=== PATIENT | male | born 1990 | race Caucasian/White ===

== ENCOUNTER 2023-07-04 13:46 | Emergency (ER) | payer SELFPAY ==
[2023-07-04 13:54] VITALS: BP 138/85; PULSE 82; RESP 20; TEMP 36.7; O2SAT 97; BMI 28.1
--- NOTE | 2023-07-04 13:58 | PC.NURSE ---
Pain to right upper back area, no redness, bruising or warmth at site
--- NOTE | 2023-07-04 14:02 | XR_ITS ---
The [address] [address] Patient Name: ANGÉLICA RIOS MRN: [id number] date: 1990 Sex: M Assigned Patient Location: ER Current Patient Location: ER Accession/Order Number: [id number] Exam Date: 07/04/2023 14:21 Report Date: 07/04/2023 14:44 At the request of: GARRET ALBA Procedure: XR chest 2V EXAM: XR chest 2V HISTORY: Thoracic back pain COMPARISON: None. TECHNIQUE: Upright PA and lateral chest x-ray FINDINGS: The heart is not enlarged and the vasculature is not distended. No acute infiltrate, effusion or pneumothorax is identified. The osseous structures are grossly intact. XR/XR chest 2V IMPRESSION: No acute infiltrate or evidence of cardiac decompensation. The osseous structures appear grossly intact. Electronically authenticated by: DONG ANDREWS Date: 07/04/2023 14:44
--- NOTE | 2023-07-04 14:03 | ED.BACK1 ---
HPI - Back Pain/Injury General Chief Complaint: Back Pain/Injury Stated Complaint: BACK PAIN/INJURY Time Seen by Provider: 07/04/23 13:50 Source: patient Mode of arrival: walk-in Limitations: no limitations History of Present Illness HPI Narrative: patient is a 32-year-old male who presents to the emergency department with his mother for the evaluation of thoracic back pain on the right side began ten minutes ago when he was lifting a table. He states he was lifting a table when he felt a pull in the right thoracic back, no direct injury or falls. He states pain is worse with deep breathing and movement. No medications taken prior to arrival. No other associated injuries or areas of pain Related Data Previous Rx's Medication Instructions Recorded ketorolac 10 mg tablet 10 mg PO TID PRN pain #10 tabs 07/04/23 methocarbamol 750 mg tablet 750 mg PO TID PRN pain #20 tabs 07/04/23 Allergies Allergy/AdvReac Type Severity Reaction Status Date / Time No Known Drug Allergies Allergy Verified 07/04/23 13:54 Review of Systems ROS Constitutional Denies: fever or chills Ears, nose, mouth, and throat Denies: throat pain or nasal congestion Cardiovascular Denies: chest pain Respiratory Denies: shortness of breath Gastrointestinal Denies: nausea or vomiting Musculoskeletal Reports: back pain; Denies: neck pain Integumentary/Breast Denies: rash Neurological Denies: headache Hematologic/Lymphatic Denies: easy bruising Exam Narrative Exam Narrative: Gen.: Awake, alert, in no distress Head: Normocephalic, atraumatic ENT: Moist mucous membranes Respiratory: No respiratory distress, lungs clear bilaterally Cardio: Regular rate and rhythm Back: no bony point tenderness over the T-spine or L-spine with diffuse tenderness of the right mid thoracic back, no scapular tenderness or extremity tenderness. No ecchymosis, rashes or crepitance Extremities: Moves extremities equally, no injuries noted Psych: Normal mood and affect Neuro: No focal neuro deficit Skin: Warm, dry, intact Constitutional Vital Signs, click to edit/add: Last Vital Signs Temp 98.0 F 07/04/23 13:54 Pulse 82 07/04/23 13:54 Resp 20 07/04/23 13:54 BP 138/85 07/04/23 13:54 Pulse Ox 97 07/04/23 13:54 O2 Del Method Room Air 07/04/23 13:54 Course Vital Signs Vital signs: Vital Signs Temperature 98.0 F 07/04/23 13:54 Pulse Rate 82 07/04/23 13:54 Respiratory Rate 20 07/04/23 13:54 Blood Pressure 138/85 07/04/23 13:54 Pulse Oximetry 97 07/04/23 13:54 Oxygen Delivery Method Room Air 07/04/23 13:54 Temperature 98.0 F 07/04/23 13:54 Pulse Rate 82 07/04/23 13:54 Respiratory Rate 20 07/04/23 13:54 Blood Pressure 138/85 07/04/23 13:54 Pulse Oximetry 97 07/04/23 13:54 Oxygen Delivery Method Room Air 07/04/23 13:54 MDM - Back Pain/Injury MDM Narrative Medical decision making narrative: patient declined intramuscular injections, patient took Toradol orally with oral Robaxin in the Emergency Room for muscle spasm. Chest x-ray shows no evidence of acute bony abnormality or pneumothorax. Patient will be treated for suspected thoracic muscle strain with anti-inflammatories and muscle relaxants for home. Rest, ice, gentle stretching. Follow-up with PCP and return to the Emergency Room if symptoms change or worsen. Medical Records Attestation: I reviewed the patient's medical records. Imaging Data Chest x-ray: Attestation: I have reviewed the pertinent imaging results. Radiologist's impression: Procedure: XR chest 2V EXAM: XR chest 2V HISTORY: Thoracic back pain COMPARISON: None. TECHNIQUE: Upright PA and lateral chest x-ray FINDINGS: The heart is not enlarged and the vasculature is not distended. No acute infiltrate, effusion or pneumothorax is identified. The osseous structures are grossly intact. IMPRESSION: No acute infiltrate or evidence of cardiac decompensation. The osseous structures appear grossly intact. Electronically authenticated by: DONG ANDREWS Date: 07/04/2023 14:44 Discharge Plan Discharge Chief Complaint: Back Pain/Injury Clinical Impression: Muscle strain, Thoracic back pain Patient Disposition: Home, Self-Care Time of Disposition Decision: 14:53 Condition: Good Prescriptions / Home Meds: New ketorolac 10 mg tablet 10 mg PO TID PRN (Reason: pain) Qty: 10 0RF methocarbamol 750 mg tablet 750 mg PO TID PRN (Reason: pain) Qty: 20 0RF Instructions: Muscle Strain (ED), Thoracic Pain (ED) Stand Alone Forms: Portal Instructions Referrals: Physician,Non-Staff, MD [Primary Care Provider] - 1 week
[2023-07-04] MEDS: KETOROLAC TROMETHAMINE 10 MG TABLET PO (14:27)
[2023-07-04] MEDS: METHOCARBAMOL 500 MG TABLET 1000 MG PO (14:27)
== END 2023-07-04 15:08 | disposition home or self-care (01) ==
PROVIDERS: Emergency Provider Emergency Medicine
DX: S29.012A Strain of muscle and tendon of back wall of thorax, initial encounter (principal); M54.6 Pain in thoracic spine; X50.0XXA Overexertion from strenuous movement or load, initial encounter
CPT/HCPCS: 71046; 99284